=== PATIENT | female | born 1980 | race Caucasian/White ===

== ENCOUNTER 2016-03-03 13:44 | Emergency (ER) | payer MEDICAID ==
[2016-03-03] MEDS ORDERED: METOCLOPRAMIDE 10 MG TAB ONE ×2 (15:29→15:33)
[2016-03-03] MEDS ORDERED: DIPHENHYDRAMINE 25 MG CAP ONE ×2 (15:29→15:33)
[2016-03-03] MEDS ORDERED: ONDANSETRON ODT 4 MG TAB ONE ×2 (15:30→15:33)
[2016-03-03] MEDS ORDERED: KETOROLAC 60 MG/2 ML VIAL IM ONE ×2 (15:30→15:33)
== END 2016-03-03 17:21 | disposition home or self-care (01) ==
LOC: ER 13:44
DX: R51 Headache (principal)
CPT/HCPCS: 96372